=== PATIENT | female | born 2000 | race Caucasian/White ===

== ENCOUNTER 2019-01-30 22:41 | Outpatient (CLI) | payer MEDICAID ==
[~2019-01-30] VITALS: Ht 147.3 cm; Wt 48.0 kg
[~2019-01-30 22:41] MED LIST: PREN-19 PO
[2019-01-30 23:10] VITALS: BP 97/52; PULSE 71; RESP 18
[2019-01-31] MEDS ORDERED: TERBUTALINE 1 MG/ML INJ SC ONE (00:30)
== END 2019-01-31 02:01 | disposition home or self-care (01) ==
LOC: OBT 22:41 → L-D 22:42 → OBT 01-31 02:01
PROVIDERS: ATTEND Obstetrics & Gynecology
DX: O62.9 Abnormality of forces of labor, unspecified (principal); O23.43 Unspecified infection of urinary tract in pregnancy, third trimester; Z3A.31 31 weeks gestation of pregnancy; Z79.2 Long term (current) use of antibiotics
CPT/HCPCS: 76817; 76818; 81001; J3105; Z7500; G0463

== ENCOUNTER 2019-03-30 01:35 | Outpatient (CLI) | payer MEDICAID ==
[~2019-03-30] VITALS: Ht 147.3 cm; Wt 59.6 kg
[2019-03-30 01:46] VITALS: BP 112/67; PULSE 66; RESP 18; Ht 147.3 cm; Wt 59.6 kg
== END 2019-03-30 05:40 | disposition home or self-care (01) ==
LOC: OBT 01:35 → L-D 01:35 → OBT 05:40
PROVIDERS: ATTEND Obstetrics & Gynecology
DX: O62.9 Abnormality of forces of labor, unspecified (principal); Z3A.39 39 weeks gestation of pregnancy
CPT/HCPCS: G0463

== ENCOUNTER 2019-04-07 20:19 | Inpatient (IN) | payer MEDICAID ==
[~2019-04-07] VITALS: Ht 147.3 cm; Wt 59.5 kg
[2019-04-07 20:40] VITALS: Ht 147.3 cm; Wt 59.5 kg
[2019-04-07] MEDS ORDERED: LACTATED RINGER'S 1,000 ML IV PRN (20:56)
[2019-04-07] MEDS ORDERED: LIDOCAINE 1% (MPF) 30 ML INJ INJ PRN (21:00)
[2019-04-07] MEDS ORDERED: BUTORPHANOL 2 MG INJ IV PRN (21:00)
[2019-04-07] MEDS ORDERED: MISOPROSTOL 200 MCG TAB PR PRN (21:00)
[2019-04-07] MEDS ORDERED: MINERAL OIL LIGHT 10 ML VIAL TOP PRN (21:00)
[2019-04-07] MEDS ORDERED: OXYTOCIN 30 UNITS/LR 500 ML IV PRN (21:00)
[2019-04-07] MEDS ORDERED: METHYLERGONOVINE 0.2 MG INJ IM PRN (21:00)
[2019-04-07] MEDS ORDERED: OXYTOCIN 30 UNITS/LR 500 ML IV SCH ×3 (21:00)
[2019-04-07] MEDS ORDERED: CARBOPROST 250 MCG INJ IM PRN (21:00)
[2019-04-07] MEDS ORDERED: AMPICILLIN 2 GM/NS (PMX) 100 ML IV ONE (21:00)
[2019-04-07] MEDS: LACTATED RINGER'S 1,000 ML IV SCH (21:28)
[2019-04-07] MEDS ORDERED: FENTAnyl 2MCG/ML-ROPIV 0.2% 100 ML ONE (23:43)
[2019-04-08] MEDS ORDERED: TRIMETHOBENZAMIDE 100 MG/ML VIAL IM PRN (01:00)
[2019-04-08] MEDS ORDERED: NALOXONE (0.4 MG/ML) INJ IV PRN (01:00)
[2019-04-08] MEDS ORDERED: ONDANSETRON 4 MG INJ IV PRN (01:00)
[2019-04-08] MEDS ORDERED: DIPHENHYDRAMINE 50 MG INJ IV PRN (01:00)
[2019-04-08] MEDS: AMPICILLIN 1 GM/NS (PMX) 50 ML IV SCH ×4 (01:25→13:08)
[2019-04-08] MEDS: LACTATED RINGER'S 1,000 ML IV SCH ×2 (05:10→09:00)
[2019-04-08] MEDS: FENTAnyl 2MCG/ML-ROPIV 0.2% 100 ML BAG EPI SCH ×3 (05:31→11:29)
[2019-04-08] MEDS ORDERED: ACETAMINOPHEN 325 MG TAB PO ONE (15:00)
[2019-04-08 16:30] VITALS: BP 100/54; PULSE 89; RESP 18
[2019-04-08] MEDS: LACTATED RINGER'S 1,000 ML IV* SCH (17:28)
[2019-04-08] MEDS ORDERED: OXYTOCIN 30 UNITS/LR 500 ML IV SCH (17:28)
[2019-04-08] MEDS ORDERED: ZOLPIDEM 5 MG TAB PO PRN (17:30)
[2019-04-08] MEDS ORDERED: DIPHENHYDRAMINE 25 MG CAP PO PRN (17:30)
[2019-04-08] MEDS ORDERED: METHYLERGONOVINE 0.2 MG INJ IM PRN (17:30)
[2019-04-08] MEDS ORDERED: ACETAMINOPHEN 325 MG TAB PO PRN (17:30)
[2019-04-08] MEDS ORDERED: MAGNESIUM HYDROXIDE 30ML CUP PO PRN (17:30)
[2019-04-08] MEDS ORDERED: MISOPROSTOL 200 MCG TAB PR PRN (17:30)
[2019-04-08] MEDS ORDERED: WITCH HAZEL/GLYCERIN PAD PR PRN (17:30)
[2019-04-08] MEDS ORDERED: HYDROCODONE/APAP (5/325) TAB PO PRN (17:30)
[2019-04-08] MEDS ORDERED: CARBOPROST 250 MCG INJ IM PRN (17:30)
[2019-04-08] MEDS ORDERED: OXYTOCIN 30 UNITS/LR 500 ML IV PRN (17:30)
[2019-04-08] MEDS ORDERED: BENZOCAINE 20% 56 ML SPRAY TOP PRN (17:30)
[2019-04-08] MEDS ORDERED: SENNA/DOCUSATE NA (8.6MG/50MG) TAB PO PRN (17:30)
[2019-04-08] MEDS: LANOLIN HPA 1 PKT TOP PRN (17:49)
[2019-04-08] MEDS: IBUPROFEN 800 MG TAB PO SCH (17:49)
[2019-04-08 20:00] VITALS: BP 100/65; PULSE 83; RESP 18
[2019-04-09] VITALS: BP 89/60; PULSE 82; RESP 18
[2019-04-09 04:00] VITALS: BP 88/57; PULSE 70; RESP 17
[2019-04-09] MEDS: LACTATED RINGER'S 1,000 ML IV* SCH ×2 (04:28→09:28)
[2019-04-09] MEDS: IBUPROFEN 800 MG TAB PO SCH ×4 (05:56→17:54)
[2019-04-09 08:15] VITALS: BP 99/57
[2019-04-09 08:30] VITALS: BP 82/55; PULSE 78; RESP 16
[2019-04-09] MEDS: LANOLIN HPA 1 PKT TOP PRN (10:31)
[2019-04-09 16:10] VITALS: BP 92/50; PULSE 74; RESP 18
[2019-04-09 19:40] VITALS: BP 109/64; PULSE 86; RESP 19
[2019-04-10] MEDS: IBUPROFEN 800 MG TAB PO SCH ×4 (00:11→17:27)
[2019-04-10 04:00] VITALS: BP 102/64; PULSE 75; RESP 20
[2019-04-10 08:00] VITALS: BP 107/72; PULSE 78; RESP 18
[2019-04-10] MEDS ORDERED: VARICELLA VACCINE LIVE/PF 1,350 UNIT/0.5 ML ML SC* ONE (09:00)
[2019-04-10] MEDS ORDERED: DIPHTH/TET/ACEL PERTUSS (ADULT) 0.5 ML VIAL IM* ONE (09:00)
[2019-04-10] MEDS ORDERED: MEASLES,MUMPS,RUBELLA VACCINE INJ SC* ONE (09:00)
[2019-04-10] MEDS: LANOLIN HPA 1 PKT TOP PRN (12:01)
[2019-04-10 16:00] VITALS: BP 102/65; PULSE 89; RESP 18
== END 2019-04-10 18:30 | disposition home or self-care (01) | DRG 807 ==
LOC: OBT 20:19 → L-D 20:20 → OBT 21:10 → L-D 21:10 → PP1 04-08 16:26
PROVIDERS: ADMIT Obstetrics & Gynecology; ATTEND Obstetrics & Gynecology
PROC: 10E0XZZ Delivery of Products of Conception, External Approach (ICD-10-PCS; principal; 2019-04-08)
PROC: 3E033VJ Introduction of Other Hormone into Peripheral Vein, Percutaneous Approach (ICD-10-PCS; 2019-04-08)
DX: O48.0 Post-term pregnancy (principal); Z37.0 Single live birth; Z3A.40 40 weeks gestation of pregnancy
CPT/HCPCS: 62322; 85025; 85610; 85730; 86592; 86850; 86900; 86901; 87340; 90716; 99464; G0463; J0290; J2590; J3010; J7120